=== PATIENT | female | born 1970 | race Caucasian/White ===

== ENCOUNTER → 2020-01-10 | Outpatient (CLI) | payer OTHER ==
--- NOTE | 2020-01-10 09:07 | MR ---
EXAMINATION TYPE: MR knee LT wo con DATE OF EXAM: 01/10/2020 COMPARISON: Plain film dated 01/04/2020 HISTORY: Pain on the inside and behind the Left Knee. Fell down stairs. TECHNIQUE: Multiplanar, multisequence imaging of the left knee is performed without IV contrast. FINDINGS: MEDIAL MENISCUS: Posterior horn medial meniscus shows some diffuse increased signal, there is a thick ened appearance, the root anchor appears at least somewhat discontinuous on the coronal image #21, 22 LATERAL MENISCUS: Anterior and posterior horns are intact without tear. CRUCIATE LIGAMENTS: The anterior and posterior cruciate ligaments are intact and unremarkable. COLLATERAL LIGAMENTS: The medial collateral ligament and lateral collateral ligament complex are inta ct and unremarkable. EXTENSOR MECHANISM: Visualized quadriceps and patellar tendons are intact. EFFUSION: Minimal suprapatellar joint effusion POPLITEAL CYST: Small semimembranosus gastric present TRICOMPARTMENT SPACES: Maintained CARTILAGE: A 2 to grade III chondromalacia present in, posterior patella BONE MARROW SIGNAL: No focal abnormal marrow signal is appreciated. OTHER: There is some subcutaneous edema change present anteriorly about the knee. IMPRESSION: Abnormal intrinsic signal within the posterior horn of the medial meniscus, the root anchor of the me dial meniscus shows what is likely at least a partial tear
== END ==
LOC: RADMRIMAIN 07:02
PROVIDERS: ATTEND Orthopaedic Surgery
DX: M23.322 Other meniscus derangements, posterior horn of medial meniscus, left knee (principal)

== ENCOUNTER → 2020-01-27 | Outpatient (CLI) | payer OTHER ==
[2020-01-27 11:01] LABS: Basophils # (A) 0.2 k/uL (0-0.2); Basophils % (A) 1 %; Eosinophils # (A) 0.3 k/uL (0-0.7); Eosinophils % (A) 2 %; HCT 42.9 % (34.0-46.0); Lymphocytes # (A) 3.7 k/uL (1.0-4.8); Lymphocytes % (A) 29 %; MCH 29.6 pg (25.0-35.0); MCHC 32.5 g/dL (31.0-37.0); MCV 90.9 fL (80.0-100.0); Mean Platelet Volume 7.5; Monocytes # (A) 0.7 k/uL (0-1.0); Monocytes % (A) 5 %; Neutrophils # (A) 7.9 k/uL (1.3-7.7); Neutrophils % (A) 61 %; Platelet Count 302 k/uL (150-450); RBC 4.72 m/uL (3.80-5.40); RDW 12.9 % (11.5-15.5)
[2020-01-27 11:09] LABS: Potassium 4.1 mmol/L (3.5-5.1)
== END | disposition home or self-care (01) ==
LOC: LABWHC1 09:48
PROVIDERS: ATTEND Orthopaedic Surgery
DX: Z01.818 Encounter for other preprocedural examination (principal); M23.92 Unspecified internal derangement of left knee
CPT/HCPCS: 36415; 80051; 85025; 93005

== ENCOUNTER → 2020-02-03 | Day surgery (SDC) | payer OTHER ==
[2020-01-31 10:14] VITALS: BMI 39.4
--- NOTE | 2020-02-02 21:53 | HP ---
HISTORY AND PHYSICAL CHIEF COMPLAINT: Left knee pain. 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 She notes she fell down the stairs in her basement. She has had pain and swelling ever since along with giving way. She did try medications in addition to an injection, with partial temporary relief. Currently she is off work because of this. She has been taking Motrin and Tylenol as well. PAST MEDICAL HISTORY: Past medical history is significant for hypercholesterolemia and depression. CURRENT MEDICATIONS: Zocor and Prozac. ALLERGIES: SHE DENIES DRUG ALLERGIES. FAMILY HISTORY: Significant for heart disease. SOCIAL HISTORY: Significant for 1-1/2 pack per day tobacco use. REVIEW OF SYSTEMS: Sixteen-point review of systems is otherwise reviewed and is noncontributory. PHYSICAL EXAMINATION: On examination, the patient is approximately 5 feet 4 inches, 230 pounds of endomorphic habitus. HEENT exam is nonfocal. NECK: Supple. She has painless passive motion of her left hip. Straight leg raise is negative. Active motion of the left knee minus 12 to 115 degrees of flexion. She has mild effusion. She is tender about the medial joint line. Collaterals are stable, Babatunde is negative, Isa's elicits medial pain. Her distal neurovascular exam otherwise appears intact in the left lower extremity. MRI report of left knee from 01/10/2020 shows a posterior medial meniscal tear involving the root. IMPRESSION: Internal derangement of the left knee with symptomatic medial meniscal tear. RECOMMENDATIONS: I spoke to the patient at length regarding her condition along with treatment options. At this point she is having persistent symptoms and significant pain and mechanical symptoms despite conservative measures. After a thorough discussion, she opted to proceed with surgery. We will plan to proceed with arthroscopic evaluation with probable partial medial meniscectomy. We will likely perform this as an outpatient procedure. Risks and benefits were discussed at length in layman's terms. MMODL / IJN: [id number] /
[~2020-02-03] MED LIST: ALBUTEROL INHALER 60 PUFF/8 GM INHALER (MHU) INHALATION ONE; ALBUTEROL NEBULIZED 2.5 MG/3 ML INHALATION ONE; DEXAMETHASONE SOD PHOSPHATE 10 MG/ML 1 ML VIAL IV ONE; HYDROcodone/APAP 5-325MG 1 EACH TAB ONE; HYDROcodone/APAP 5-325MG 1 EACH TAB PO ONE; KETOROLAC 30 MG/ML 1 ML VIAL ONE; LACTATED RINGERS 1,000 ML IV SCH; LIDOCAINE 1% (10MG/ML) FOR IV START INTRADERMA PRN; LIDOCAINE 1% INJ 10MG/ML (20 ML MDV) ONE; MIDAZOLAM 2 MG/2 ML VIAL IV PRN; MIDAZOLAM 2 MG/2 ML VIAL ONE; ONDANSETRON 4 MG/2 ML VIAL IVP ONE; ONDANSETRON 4 MG/2 ML VIAL ONE; PROPOFOL 10 MG/ML 20 ML VIAL IV ONE; SUCCINYLCHOLINE CHLORIDE 100 MG/5 ML SYR IV ONE; diphenhydrAMINE 50 MG/ML 1 ML VIAL IVP ONE; fentaNYL (PF) 50 MCG/ML 2 ML AMP ONE
[2020-02-03 08:42] VITALS: TEMP 97.6
--- NOTE | 2020-02-03 08:45 | P.OP ---
Date of Procedure: 02/03/20 Preoperative Diagnosis: Left knee internal derangement Postoperative Diagnosis: Left knee posterior medial meniscal tear/grade 3 chondral injury distal medial femoral condyle Procedure(s) Performed: Left knee arthroscopic partial medial meniscectomy/medial femoral chondrectomy/ Anesthesia: SEKOU Surgeon: Todd Ponce Estimated Blood Loss (ml): 10 Pathology: none sent Condition: stable Disposition: PACU Indications for Procedure: The patient's a 49-year-old female who presents with progressive left knee pain and mechanical symptoms after a previous injury. A discussion the risks and benefits of continued conservative measures versus operative intervention was made with patient. Proceed with surgery. Operative risks to include infection, neurovascular injury, development of blood clots, possible incomplete resolution of symptoms, possible worsening symptoms and need for subsequent procedures was discussed. Informed consent was obtained. Operative Findings: As below Description of Procedure: The patient was brought to the operating room, and after induction of general anesthesia examined the left knee. Collaterals were stable, Babatunde was negative, and posterior drawer was negative. The left lower extremity was prepped and draped in a normal fashion. A superior lateral portal was made through a 3 mm skin incision superior and lateral to the patella. This was used for outflow. A lateral portal was made through a 5 mm vertical skin incision lateral to the patella tendon above the joint line. Diagnostic arthroscopy was performed. On inspection of the medial compartment, and oblique tear involving the posterior most aspect of the medial meniscus in the white-red junction was noted. This was not amenable to repair. This was debrided back to stable base with straight baskets and a motorized shaver. A grade 3 chondral injury was noted involving the distal central portion medial femoral condyle. As a loose chondral flap measuring approximately 4 x 5 mm. This debrided back to stable base motorized shaver. Microfracture is performed with a power pick breeching the subchondral surface down to the bone marrow elements. On inspection of the notch, the anterior cruciate ligament appeared to be intact. On inspection of the lateral compartment, no significant meniscal or cartilage pathology was noted. On inspection of the patellofemoral articulation, there was chondral fibrillation however no loose chondral fragments. The gutters were clear debris. The knee was then thoroughly irrigated. The portals were closed with Steri-Strips. A sterile dressing was applied in addition to a compression stocking. The patient was awoken from general anesthesia and transferred to recovery room in good condition. Blood loss was estimated at 10 mL. No complications were incurred.
[2020-02-03] MEDS: HYDROmorphone 0.5 MG/0.5 ML SYRINGE IVP PRN ×4 (08:51→09:05)
[2020-02-03 09:39] VITALS: RESP 17
[2020-02-03 09:54] VITALS: BP 116/54; PULSE 69
== END | disposition home or self-care (01) ==
LOC: OR 06:39
PROVIDERS: ATTEND Orthopaedic Surgery
DX: S83.242A Other tear of medial meniscus, current injury, left knee, initial encounter (principal); S89.82XA Other specified injuries of left lower leg, initial encounter; E78.00 Pure hypercholesterolemia, unspecified; F32.9 Major depressive disorder, single episode, unspecified; F17.210 Nicotine dependence, cigarettes, uncomplicated; E78.5 Hyperlipidemia, unspecified; N28.89 Other specified disorders of kidney and ureter; M19.90 Unspecified osteoarthritis, unspecified site; Z79.899 Other long term (current) drug therapy; Z90.49 Acquired absence of other specified parts of digestive tract; Z96.0 Presence of urogenital implants; Z82.49 Family history of ischemic heart disease and other diseases of the circulatory system; W10.9XXA Fall (on) (from) unspecified stairs and steps, initial encounter; Y92.018 Other place in single-family (private) house as the place of occurrence of the external cause
CPT/HCPCS: 81025; 29881; 29879; J2250; J1200; J1100; J0690; J2405; J2001; J3010; J1885; J0330; J2704; J1170

== ENCOUNTER → 2020-07-05 | Outpatient (CLI) | payer OTHER ==
--- NOTE | 2020-07-05 13:27 | MM ---
Reason for exam: screening (asymptomatic). Baseline mammogram. History: Patient is nulliparous. Physical Findings: Nurse did not find any significant physical abnormalities on exam. MG Screening Mammo w CAD Bilateral CC and MLO view(s) were taken. The breast tissue is almost entirely fat. There is no discrete abnormality. These results were verbally communicated with the patient and result sheet given to the patient on 07/05/20. ASSESSMENT: Negative, BI-RAD 1 RECOMMENDATION: Routine screening mammogram of both breasts in 1 year.
== END | disposition home or self-care (01) ==
LOC: RADMAMWWP 12:35
PROVIDERS: ATTEND Physician Assistant
DX: Z12.31 Encounter for screening mammogram for malignant neoplasm of breast (principal)
CPT/HCPCS: 77067

== ENCOUNTER → 2023-05-13 | Outpatient (CLI) | payer OTHER ==
--- NOTE | 2023-05-14 11:01 | MM ---
Reason for Exam: Screening (asymptomatic). Last mammogram was performed 2 year(s) and 10 month(s) ago. Patient History: Menarche at age 11. Patient has no children. Postmenopausal. Risk Values: Juana 5 year model risk: 1.2%. NCI Lifetime model risk: 9.4%. Prior Study Comparison: 07/05/2020 Bilateral Screening Mammogram, [facility]. Tissue Density: The breast tissue is almost entirely fat. Findings: Analyzed By CAD. There is no suspicious group of microcalcifications or new suspicious mass in either breast. Overall Assessment: Negative, BI-RAD 1 Management: Screening Mammogram of both breasts in 1 year. . Patient should continue monthly self-breast exams. A clinical breast exam by your physician is recommended on an annual basis. This exam should not preclude additional follow-up of suspicious palpable abnormalities. Note on Juana scores and lifetime risk: 1. A Juana score greater than 3% is considered moderate risk. If this is the case, consider specialist referral to assess eligibility for a risk reducing agent. 2. If overall lifetime risk for the development of breast cancer is 20% or higher, the patient may qualify for future screening with alternating mammogram and breast MRI. Electronically signed and approved by: Camilo Hernández M.D. Radiologis
== END | disposition home or self-care (01) ==
LOC: RADMAMWWP 09:55
PROVIDERS: ATTEND Family Medicine
DX: Z12.31 Encounter for screening mammogram for malignant neoplasm of breast (principal); Z78.0 Asymptomatic menopausal state
CPT/HCPCS: 77067

== ENCOUNTER 2023-07-02 13:49 | Emergency (ER) | payer BC, OTHER ==
[2023-07-02 15:09] LABS: Basophils # (A) 0.1 k/uL (0-0.2); Basophils % (A) 1 %; Eosinophils # (A) 0.2 k/uL (0-0.7); Eosinophils % (A) 2 %; HCT 38.2 % (34.0-46.0); HGB 12.7 gm/dL (11.4-16.0); Lymphocytes # (A) 3.1 k/uL (1.0-4.8); Lymphocytes % (A) 27 %; MCH 29.4 pg (25.0-35.0); MCHC 33.2 g/dL (31.0-37.0); MCV 88.6 fL (80.0-100.0); Mean Platelet Volume 7.5; Monocytes # (A) 0.6 k/uL (0-1.0); Monocytes % (A) 6 %; Neutrophils # (A) 7.4 k/uL (1.3-7.7); Neutrophils % (A) 64 %; Platelet Count 311 k/uL (150-450); RBC 4.31 m/uL (3.80-5.40); RDW 12.7 % (11.5-15.5); WBC 11.7 k/uL (3.8-10.6)
[2023-07-02 15:19] LABS: INR 0.9 (<1.2); Prothrombin Time 10.4 sec (10.0-12.5)
--- NOTE | 2023-07-02 15:20 | XR ---
EXAMINATION TYPE: XR chest 2V DATE OF EXAM: 07/02/2023 COMPARISON: None INDICATION: Difficulty breathing TECHNIQUE: Frontal and lateral views of the chest are obtained. FINDINGS: The heart size is normal. The pulmonary vasculature is normal. The lungs are clear. IMPRESSION: 1. No acute pulmonary process.
[2023-07-02 15:33] LABS: ALT 37 U/L (4-34); AST 33 U/L (14-36); African American GFR (CKD) >90 (>60 ml/min/1.73 sqM); Albumin 4.6 g/dL (3.5-5.0); Alkaline Phosphatase 97 U/L (38-126); Anion Gap 12 mmol/L; Blood Urea Nitrogen 16 mg/dL (7-17); Calcium 9.6 mg/dL (8.4-10.2); Carbon Dioxide 24 mmol/L (22-30); Chloride 102 mmol/L (98-107); Glucose 110 mg/dL (74-99); Non-African American GFR(CKD) >90 (>60 ml/min/1.73 sqM); Potassium 4.2 mmol/L (3.5-5.1); Sodium 138 mmol/L (137-145); Total Bilirubin 0.6 mg/dL (0.2-1.3); Total Protein 7.8 g/dL (6.3-8.2)
[2023-07-02 15:42] LABS: NT-Pro-B-Type Natriuretic Pept 47 pg/mL
--- NOTE | 2023-07-02 17:05 | ED ---
General Adult HPI - General Chief complaint: Shortness of Breath Stated complaint: SOB Time Seen by Provider: 07/02/23 16:20 Source: patient, RN notes reviewed Mode of arrival: ambulatory Limitations: no limitations - History of Present Illness Initial comments: 52-year-old female presents to the emergency department for evaluation of shortness of breath worse with exertion. Patient states that she was evaluated at her primary care provider's office today and was told that it looked like she may have fluid on her lungs. This prompted her PCP to have her evaluated in the emergency department today. Patient does report bilateral lower extremity s welling occasionally. She reports that it is minimal today. She denies chest pain. - Related Data Home Medications Medication Instructions Recorded Confirmed FLUoxetine HCL [PROzac] 20 mg PO DAILY 01/31/20 07/02/23 Simvastatin [Zocor] 40 mg PO HS 01/31/20 07/02/23 Ascorbic Acid [Vitamin C] 2,000 mg PO DAILY 07/02/23 07/02/23 Biotin [Jtzn-Kexu-Hfaam] 10,000 mcg PO DAILY 07/02/23 07/02/23 Celecoxib [CeleBREX] 200 mg PO DAILY 07/02/23 07/02/23 Celecoxib [CeleBREX] 200 mg PO DAILY PRN 07/02/23 07/02/23 Cholecalciferol [Vitamin D3 (25 50 mcg PO DAILY 07/02/23 07/02/23 Mcg = 1000 Iu)] Garlic 1,000 mg PO DAILY 07/02/23 07/02/23 Ramya 500 mg PO DAILY 07/02/23 07/02/23 Magnesium 400 mg PO DAILY 07/02/23 07/02/23 Vit C/E/Zn/Coppr/Lutein/Zeaxan 1 cap PO DAILY 07/02/23 07/02/23 [Preservision Areds 2 Softgel] metFORMIN HCL [Glucophage] 500 mg PO BID 07/02/23 07/02/23 Previous Rx's Medication Instructions Recorded Furosemide [Lasix] 20 mg PO DAILY #14 tab 07/02/23 Allergies Allergy/AdvReac Type Severity Reaction Status Date / Time No Known Allergies Allergy Verified 07/02/23 16:56 Review of Systems ROS Statement: Those systems with pertinent positive or pertinent negative responses have been documented in the HPI. ROS Other: All systems not noted in ROS Statement are negative. Past Medical History Past Medical History: Diabetes Mellitus Additional Past Medical History / Comment(s): depression, History of Any Multi-Drug Resistant Organisms: None Reported Past Surgical History: Cholecystectomy, Orthopedic Surgery Past Psychological History: Depression Smoking Status: Former smoker Past Alcohol Use History: Occasional Past Drug Use History: None Reported General Exam Limitations: no limitations General appearance: alert, in no apparent distress Head exam: Present: atraumatic, normocephalic, normal inspection Eye exam: Present: normal appearance, PERRL, EOMI. Absent: scleral icterus, conjunctival injection, periorbital swelling ENT exam: Present: normal exam, mucous membranes moist Neck exam: Present: normal inspection. Absent: tenderness, meningismus, lymphadenopathy Respiratory exam: Present: normal lung sounds bilaterally. Absent: respiratory distress, wheezes, rales, rhonchi, stridor Cardiovascular Exam: Present: regular rate, normal rhythm, normal heart sounds. Absent: systolic murmur, diastolic murmur, rubs, gallop, clicks Course Vital Signs 07/02/23 07/02/23 14:09 17:44 Temperature 97.7 F 98.2 F Pulse Rate 57 L 81 Respiratory 18 22 Rate Blood Pressure 143/78 129/78 O2 Sat by Pulse 96 96 Oximetry Medical Decision Making - Medical Decision Making Was pt. sent in by a medical professional or institution ([facility], [employer], urgent care, hospital, or [place] health care facility...) When possible be specific @ -Sent in by PCP Did you speak to anyone other than the patient for history (EMS, parent, family, police, friend...)? What history was obtained from this source @ -No Did you review nursing and triage notes (agree or disagree)? Why? @ -I reviewed and agree with nursing and triage notes Were old charts reviewed (outside hosp., previous admission, EMS record, old EKG, old radiological studies, urgent care reports/EKG's, [place] health care facility records)? Report findings @ -No old charts were reviewed Differential Diagnosis (chest pain, altered mental status, abdominal pain women, abdominal pain men, vaginal bleeding, weakness, fever, dyspnea, syncope, headache, dizziness, GI bleed, back pain, seizure, CVA, palpatations, mental health, musculoskeletal)? @ -Differential Dyspnea: Coronary syndrome, arrhythmia, tamponade, asthma, COPD, pulmonary embolism, pneumonia, pneumothorax, pulmonary effusion, anaphylaxis, diabetic ketoacidosis, flailed chest, pulmonary contusion, diaphragmatic rupture, anemia, neuromuscular, this is not meant to be an all-inclusive list. e EKG interpreted by me (3pts min.). @ -EKG at 1439 shows sinus bradycardia rate 56, ME 160, QRS 89, QTQTc 091024 X-rays interpreted by me (1pt min.). @ -Chest x-ray shows no acute process CT interpreted by me (1pt min.). @ -None done U/S interpreted by me (1pt. min.). @ -None done What testing was considered but not performed or refused? (CT, X-rays, U/S, labs)? Why? @ -None What meds were considered but not given or refused? Why? @ -None Did you discuss the management of the patient with other professionals (professionals i.e. , PA, [employer], lab, RT, psych nurse, licensed social worker, flow trader, teacher, chief school finance officer, case management manager)? Give summary @ -No Was smoking cessation discussed for >3mins.? @ -No Was critical care preformed (if so, how long)? @ -No Were there social determinants of health that impacted care today? How? (Homelessness, low income, unemployed, alcoholism, drug addiction, transportation, low edu. Level, literacy, decrease access to med. care, nursing home, rehab)? @ -No Was there de-escalation of care discussed even if they declined (Discuss DNR or withdrawal of care, Hospice)? DNR status @ -No What co-morbidities impacted this encounter? (DM, HTN, Smoking, COPD, CAD, Cancer, CVA, ARF, Chemo, Hep., AIDS, mental health diagnosis, sleep apnea, morbid obesity)? @ -None Was patient admitted / discharged? Hospital course, mention meds given and route, prescriptions, significant lab abnormalities, going to OR and other pertinent info. @ -Discharged. Patient presented to the emergency department for evaluation of shortness of breath and bilateral lower extremity edema. On examination today, patient has minimal bilateral lower extremity edema. Chest x-ray obtained shows no acute process.Laboratory studies obtained including troponin which is negative and BMP which is 47. Discussed the findings with the patient. Patient agreeable with discharge home. Patient is not visibly short of breath. Patient stable at time of discharge. Case discussed with Dr. Hartley. Undiagnosed new problem with uncertain prognosis? @ -No Drug Therapy requiring intensive monitoring for toxicity (Heparin, Nitro, Insulin, Cardizem)? @ -No Were any procedures done? @ -No Diagnosis/symptom? @ -shortness of breath, bilateral lower extremity edema Acute, or Chronic, or Acute on Chronic? @ -acute Uncomplicated (without systemic symptoms) or Complicated (systemic symptoms)? @ -uncomplicated Side effects of treatment? @ -No Exacerbation, Progression, or Severe Exacerbation? @ -No Poses a threat to life or bodily function? How? (Chest pain, USA, NC, pneumonia, PE, COPD, DKA, ARF, appy, cholecystitis, CVA, Diverticulitis, Homicidal, Suicidal, threat to staff... and all critical care pts) @ -No - Lab Data Result diagrams: 07/02/23 14:46 07/02/23 14:46 Lab Results 07/02/23 07/02/23 07/02/23 Range/Units 14:46 14:46 14:46 WBC 11.7 H (3.8-10.6) k/uL RBC 4.31 (3.80-5.40) m/uL Hgb 12.7 (11.4-16.0) gm/dL Hct 38.2 (34.0-46.0) % MCV 88.6 (80.0-100.0) fL MCH 29.4 (25.0-35.0) pg MCHC 33.2 (31.0-37.0) g/dL RDW 12.7 (11.5-15.5) % Plt Count 311 (150-450) k/uL MPV 7.5 Neutrophils % 64 % Lymphocytes % 27 % Monocytes % 6 % Eosinophils % 2 % Basophils % 1 % Neutrophils # 7.4 (1.3-7.7) k/uL Lymphocytes # 3.1 (1.0-4.8) k/uL Monocytes # 0.6 (0-1.0) k/uL Eosinophils # 0.2 (0-0.7) k/uL Basophils # 0.1 (0-0.2) k/uL PT 10.4 (10.0-12.5) sec INR 0.9 (<1.2) APTT 26.0 (22.0-30.0) sec Sodium 138 (137-145) mmol/L Potassium 4.2 (3.5-5.1) mmol/L Chloride 102 (98-107) mmol/L Carbon Dioxide 24 (22-30) mmol/L Anion Gap 12 mmol/L BUN 16 (7-17) mg/dL Creatinine 0.49 L (0.52-1.04) mg/dL Est GFR (CKD-EPI)AfAm >90 (>60 ml/min/1.73 sqM) Est GFR (CKD-EPI)NonAf >90 (>60 ml/min/1.73 sqM) Glucose 110 H (74-99) mg/dL Calcium 9.6 (8.4-10.2) mg/dL Total Bilirubin 0.6 (0.2-1.3) mg/dL AST 33 (14-36) U/L ALT 37 H (4-34) U/L Alkaline Phosphatase 97 (38-126) U/L Troponin I (0.000-0.034) ng/mL NT-Pro-B Natriuret Pep 47 pg/mL Total Protein 7.8 (6.3-8.2) g/dL Albumin 4.6 (3.5-5.0) g/dL 07/02/23 Range/Units 14:46 WBC (3.8-10.6) k/uL RBC (3.80-5.40) m/uL Hgb (11.4-16.0) gm/dL Hct (34.0-46.0) % MCV (80.0-100.0) fL MCH (25.0-35.0) pg MCHC (31.0-37.0) g/dL RDW (11.5-15.5) % Plt Count (150-450) k/uL MPV Neutrophils % % Lymphocytes % % Monocytes % % Eosinophils % % Basophils % % Neutrophils # (1.3-7.7) k/uL Lymphocytes # (1.0-4.8) k/uL Monocytes # (0-1.0) k/uL Eosinophils # (0-0.7) k/uL Basophils # (0-0.2) k/uL PT (10.0-12.5) sec INR (<1.2) APTT (22.0-30.0) sec Sodium (137-145) mmol/L Potassium (3.5-5.1) mmol/L Chloride (98-107) mmol/L Carbon Dioxide (22-30) mmol/L Anion Gap mmol/L BUN (7-17) mg/dL Creatinine (0.52-1.04) mg/dL Est GFR (CKD-EPI)AfAm (>60 ml/min/1.73 sqM) Est GFR (CKD-EPI)NonAf (>60 ml/min/1.73 sqM) Glucose (74-99) mg/dL Calcium (8.4-10.2) mg/dL Total Bilirubin (0.2-1.3) mg/dL AST (14-36) U/L ALT (4-34) U/L Alkaline Phosphatase (38-126) U/L Troponin I <0.012 (0.000-0.034) ng/mL NT-Pro-B Natriuret Pep pg/mL Total Protein (6.3-8.2) g/dL Albumin (3.5-5.0) g/dL Disposition Clinical Impression: Lower extremity edema, Shortness of breath Disposition: HOME SELF-CARE Condition: Stable Instructions (If sedation given, give patient instructions): Shortness of Breath (ED) Additional Instructions: Please follow up with Dr. Hameed's office. Return to the emergency department for new or worsening symptoms. Prescriptions: Furosemide [Lasix] 20 mg PO DAILY #14 tab Is patient prescribed a controlled substance at d/c from ED?: No Referrals: Sha Hameed MD [Primary Care Provider] - 1-2 days
[2023-07-02 17:56] VITALS: BP 129/78; PULSE 81; RESP 22; TEMP 98.2
== END 2023-07-02 17:44 | disposition home or self-care (01) ==
LOC: EC 13:49
DX: R06.02 Shortness of breath (principal); R60.0 Localized edema; E11.9 Type 2 diabetes mellitus without complications; F32.A Depression, unspecified; Z79.1 Long term (current) use of non-steroidal anti-inflammatories (NSAID); Z79.84 Long term (current) use of oral hypoglycemic drugs; Z79.899 Other long term (current) drug therapy; Z87.891 Personal history of nicotine dependence; Z90.49 Acquired absence of other specified parts of digestive tract
CPT/HCPCS: 36415; 71046; 80053; 83880; 84484; 85025; 85610; 85730; 93005; 99285

== ENCOUNTER 2023-08-13 10:58 | Emergency (ER) | payer BC ==
[2023-08-13 11:55] VITALS: BP 143/75; PULSE 64; RESP 18; TEMP 98.2
--- NOTE | 2023-08-13 11:56 | ED ---
Extremity Problem HPI - General Stated complaint: PAIN IN R KNEE Source: patient Mode of arrival: ambulatory Limitations: no limitations - History of Present Illness Initial comments: Patient is a 52-year-old female who presents emergency room with complaints of right knee pain. Patient said she has had right lateral knee pain for a few weeks however when she went to get up out of her chair today she felt a pop and had extreme pain. She denies falling to the ground. Denies any head trauma. Patient has had a left meniscus tear and she states it feels similar. She is unable to bear weight without any pain since hearing a pop. She does see an water rights specialist regularly for ongoing knee pain. She was unable to get into the or though today but can get in next week. She is not on any chronic pain medications but does take medication for rheumatoid arthritis. - Related Data Home Medications Medication Instructions Recorded Confirmed FLUoxetine HCL [PROzac] 20 mg PO DAILY 01/31/20 07/02/23 Simvastatin [Zocor] 40 mg PO HS 01/31/20 07/02/23 Ascorbic Acid [Vitamin C] 2,000 mg PO DAILY 07/02/23 07/02/23 Biotin [Nlaz-Cfgm-Ushix] 10,000 mcg PO DAILY 07/02/23 07/02/23 Celecoxib [CeleBREX] 200 mg PO DAILY 07/02/23 07/02/23 Celecoxib [CeleBREX] 200 mg PO DAILY PRN 07/02/23 07/02/23 Cholecalciferol [Vitamin D3 (25 50 mcg PO DAILY 07/02/23 07/02/23 Mcg = 1000 Iu)] Garlic 1,000 mg PO DAILY 07/02/23 07/02/23 Ramya 500 mg PO DAILY 07/02/23 07/02/23 Magnesium 400 mg PO DAILY 07/02/23 07/02/23 Vit C/E/Zn/Coppr/Lutein/Zeaxan 1 cap PO DAILY 07/02/23 07/02/23 [Preservision Areds 2 Softgel] metFORMIN HCL [Glucophage] 500 mg PO BID 07/02/23 07/02/23 Previous Rx's Medication Instructions Recorded Furosemide [Lasix] 20 mg PO DAILY #14 tab 07/02/23 Lidocaine 5% Patch [Lidoderm] 1 each TP DAILY #14 patch 08/13/23 oxyCODONE HCL/ACETAMINOPHEN 1 tab PO Q6HR PRN 3 Days #12 tab 08/13/23 [Percocet 5-325 mg] Allergies Allergy/AdvReac Type Severity Reaction Status Date / Time No Known Allergies Allergy Verified 08/13/23 11:28 Review of Systems ROS Statement: Those systems with pertinent positive or pertinent negative responses have been documented in the HPI. ROS Other: All systems not noted in ROS Statement are negative. Past Medical History Past Medical History: Diabetes Mellitus Additional Past Medical History / Comment(s): depression, History of Any Multi-Drug Resistant Organisms: None Reported Past Surgical History: Cholecystectomy, Orthopedic Surgery Past Psychological History: Depression Smoking Status: Former smoker Past Alcohol Use History: Occasional Past Drug Use History: None Reported General Exam Limitations: no limitations General appearance: alert, in no apparent distress Eye exam: Present: normal appearance Neck exam: Present: full ROM Cardiovascular Exam: Present: regular rate Extremities exam: Present: tenderness (Tenderness over the right LCL. No swelling), other (Pain to the right lateral knee without any significant swelling. No erythema or warmth. No laxity of the ligaments. No popping or clicking elicited.). Absent: full ROM, joint swelling Back exam: Present: full ROM Neurological exam: Present: alert, oriented X3, CN II-XII intact Psychiatric exam: Present: normal affect Skin exam: Present: warm, dry Course Vital Signs 08/13/23 08/13/23 11:27 14:12 Temperature 98.2 F Pulse Rate 64 Respiratory 18 18 Rate Blood Pressure 143/75 O2 Sat by Pulse 95 Oximetry - Reevaluation(s) Reevaluation #1: 08/13/23 1345 Patient can minutes in the emergency room. Had a knee immobilizer applied and she has crutches at home she can use for evaluation. I discussed imaging results which are negative for any DVT, fracture, dislocation, effusion or other acute changes. Discussed treatment plan including elevation and follow up with her water rights specialist next week. She understands she is not to work or drive while taking pain medication. Medical Decision Making - Medical Decision Making Was pt. sent in by a medical professional or institution (, PA, FLAME HARDENING MACHINE OPERATOR, urgent care, hospital, or penitentiary...) When possible be specific @ -[No] Did you speak to anyone other than the patient for history (EMS, parent, family, police, friend...)? What history was obtained from this source @ - at bedside Did you review nursing and triage notes (agree or disagree)? Why? @ -[I reviewed and agree with nursing and triage notes] Were old charts reviewed (outside hosp., previous admission, EMS record, old EKG, old radiological studies, urgent care reports/EKG's, penitentiary records)? Report findings @ -Old charts were reviewed, and external medication records were reviewed. Differential Diagnosis (chest pain, altered mental status, abdominal pain women, abdominal pain men, vaginal bleeding, weakness, fever, dyspnea, syncope, headache, dizziness, GI bleed, back pain, seizure, CVA, palpatations, mental health, musculoskeletal)? @ -Meniscus tear of the right knee, right knee sprain, osteoarthritis of the right knee, right knee pain EKG interpreted by me (3pts min.). @ -[As above] X-rays interpreted by me (1pt min.). @ -X-rays negative for any dislocation, fracture or acute changes. CT interpreted by me (1pt min.). @ -[None done] U/S interpreted by me (1pt. min.). @ -Ultrasound is negative for any DVT or other acute changes. What testing was considered but not performed or refused? (CT, X-rays, U/S, labs)? Why? @ -MRI. Unable to complete an MRI in the emergency room as this is an outpatient study. She will follow up with water rights specialist as an outpatient for possible further imaging. What meds were considered but not given or refused? Why? @ -[None] Did you discuss the management of the patient with other professionals (pr ofessionals i.e. , PA, FLAME HARDENING MACHINE OPERATOR, lab, RT, psych nurse, secondary social studies teacher, winding department supervisor, teacher, officer captain, manager agricultural)? Give summary @ -[No] Was smoking cessation discussed for >3mins.? @ -[No] Was critical care preformed (if so, how long)? @ -[No] Were there social determinants of health that impacted care today? How? (Homelessness, low income, unemployed, alcoholism, drug addiction, transportation, low edu. Level, literacy, decrease access to med. care, longterm, rehab)? @ -[No] Was there de-escalation of care discussed even if they declined (Discuss DNR or withdrawal of care, Hospice)? DNR status @ -[No] What co-morbidities impacted this encounter? (DM, HTN, Smoking, COPD, CAD, Cancer, CVA, ARF, Chemo, Hep., AIDS, mental health diagnosis, sleep apnea, morbid obesity)? @ -[None] Was patient admitted / discharged? Hospital course, mention meds given and route, prescriptions, significant lab abnormalities, going to OR and other pertinent info. @ -[Patient is stable she is able to follow-up as an outpatient with water rights specialist. She will be given medication for pain as needed she understands she is not to drive or work while taking the medication Undiagnosed new problem with uncertain prognosis? @ -[No] Drug Therapy requiring intensive monitoring for toxicity (Heparin, Nitro, In sulin, Cardizem)? @ -[No] Were any procedures done? @ -[No] Diagnosis/symptom? @ -Right knee pain, right LCL sprain, possible meniscal injury of the right knee Acute, or Chronic, or Acute on Chronic? @ -Acute Uncomplicated (without systemic symptoms) or Complicated (systemic symptoms)? @ -[default] Side effects of treatment? @ -[No] Exacerbation, Progression, or Severe Exacerbation? @ -[No] Poses a threat to life or bodily function? How? (Chest pain, USA, OR, pneumonia, PE, COPD, DKA, ARF, appy, cholecystitis, CVA, Diverticulitis, Homicidal, Suicidal, threat to staff... and all critical care pts) @ -[No] Disposition Clinical Impression: Knee pain, MCL sprain of right knee Disposition: HOME SELF-CARE Condition: Fair Instructions (If sedation given, give patient instructions): Knee Sprain (ED), Swollen Knee Joint (ED), Knee Pain (ED) Prescriptions: Lidocaine 5% Patch [Lidoderm] 1 each TP DAILY #14 patch oxyCODONE HCL/ACETAMINOPHEN [Percocet 5-325 mg] 1 tab PO Q6HR PRN 3 Days #12 tab PRN Reason: Pain Is patient prescribed a controlled substance at d/c from ED?: No Referrals: Sha Hameed MD [Primary Care Provider] - 1-2 days Dre Scruggs MD [REFERRING] - 1-2 days Time of Disposition: 13:59
[2023-08-13] MEDS: oxyCODONE-APAP 10-325MG 1 EACH TAB PO STA (12:10)
[2023-08-13] MEDS: KETOROLAC 15 MG/ML 1 ML VIAL IM STA (12:11)
--- NOTE | 2023-08-13 12:19 | XR ---
EXAMINATION TYPE: XR knee complete RT DATE OF EXAM: 08/13/2023 COMPARISON: None HISTORY: 52-year-old female with pain TECHNIQUE: 3 views FINDINGS: Mild degenerative spurring patellofemoral compartment. Extensor mechanism is intact. No sig nificant joint effusion. No acute fracture, subluxation, dislocation seen. IMPRESSION: No acute osseous abnormality seen. Mild early degenerative spurring in the patellofemoral compartment .
--- NOTE | 2023-08-13 13:15 | US ---
EXAMINATION TYPE: US venous doppler duplex LE RT DATE OF EXAM: 08/13/2023 11:55 AM COMPARISON: NONE CLINICAL INDICATION: Female, 52 years old with history of pain; Right leg pain SIDE PERFORMED: Right TECHNIQUE: The lower extremity deep venous system is examined utilizing real time linear array sonog mode with graded compression, doppler sonography and color-flow sonography. VESSELS IMAGED: Common Femoral Vein Deep Femoral Vein Greater Saphenous Vein * Femoral Vein Popliteal Vein Small Saphenous Vein * Proximal Calf Veins (* superficial vessels) Right Leg: Appears negative for DVT IMPRESSION: No evidence for DVT within the right lower extremity imaged from the groin to the upper calf.
== END 2023-08-13 14:13 | disposition home or self-care (01) ==
LOC: EC 10:58
DX: S83.91XA Sprain of unspecified site of right knee, initial encounter (principal); E11.9 Type 2 diabetes mellitus without complications; F32.A Depression, unspecified; Z87.891 Personal history of nicotine dependence; Z79.899 Other long term (current) drug therapy; X58.XXXA Exposure to other specified factors, initial encounter
CPT/HCPCS: 73562; 93971; 99284; 96372; L1830; J1885

== ENCOUNTER → 2023-08-31 | Outpatient (CLI) | payer BC ==
--- NOTE | 2023-09-03 14:02 | MR ---
EXAMINATION TYPE: MR knee RT wo con DATE OF EXAM: 08/31/2023 COMPARISON: Outside right knee x-ray August 21, 2023 HISTORY: Rt knee pain For 4 weeks after twisting injury. TECHNIQUE: Multiplanar, multisequence images of the knee is performed without IV contrast. FINDINGS: Slightly suboptimal due to artifact from motion. MEDIAL MENISCUS: Medial bulging medial meniscus on coronal images. Increased signal posterior horn do es not definitively extend to articular surface. LATERAL MENISCUS: Anterior and posterior horns are intact without tear. CRUCIATE LIGAMENTS: The anterior and posterior cruciate ligaments are intact. There is some undulatio n and increased signal in the anterior cruciate ligament. COLLATERAL LIGAMENTS: The medial collateral ligament and lateral collateral ligament complex are inta ct. Some increased signal in the lateral collateral ligament proper. Partial tearing of the medial co llateral ligament with surrounding fluid. EXTENSOR MECHANISM: Visualized quadriceps and patellar tendons are intact. EFFUSION: Small size suprapatellar joint effusion. POPLITEAL CYST: No popliteal/lugo cyst. TRICOMPARTMENT SPACES: Mild to moderate tricompartment joint space loss. No significant spurring. CARTILAGE: Chondromalacia patella with cartilaginous loss along the posterior patellar pole. Areas of full-thickness loss superiorly are seen. BONE MARROW SIGNAL: Heterogeneity consistent with red marrow reconversion. OTHER: No additional significant abnormality is appreciated. IMPRESSION: 1. Suboptimal study, at least intrasubstance tear posterior horn medial meniscus. 2. Suspect sprain injury to the medial collateral ligament. Suspect chronic sprain injury to the late ral collateral ligament proper. 3. Partial tearing of the anterior cruciate ligament. 4. Mild to moderate tricompartment degenerative changes most prominent patellofemoral compartment as detailed above. 5. Small-size suprapatellar joint effusion.
== END | disposition home or self-care (01) ==
LOC: RADMRIMAIN 12:40
PROVIDERS: ATTEND Orthopaedic Surgery
DX: M17.11 Unilateral primary osteoarthritis, right knee (principal); M23.611 Other spontaneous disruption of anterior cruciate ligament of right knee; M23.321 Other meniscus derangements, posterior horn of medial meniscus, right knee; M25.461 Effusion, right knee; X50.1XXA Overexertion from prolonged static or awkward postures, initial encounter

== ENCOUNTER → 2023-09-17 | Outpatient (CLI) | payer BC ==
[2023-09-18 02:51] LABS: Anion Gap 14.1 mmol/L (4.00-12.00); Carbon Dioxide 24.9 mmol/L (21.6-31.8); Potassium 4.4 mmol/L (3.5-5.5)
[2023-09-18 02:56] LABS: Basophils # (A) 0.13 X 10*3/uL (0.00-0.10); Eosinophils # (A) 0.23 X 10*3/uL (0.04-0.35); Eosinophils % (A) 1.7 %; HCT 42.5 % (37.2-46.3); HGB 13.4 g/dL (12.0-15.0); Lymphocytes # (A) 3.51 X 10*3/uL (0.90-5.00); Lymphocytes % (A) 26.3 %; MCH 27.9 pg (27.0-32.0); MCHC 31.5 g/dL (32.0-37.0); MCV 88.5 FL (80.0-97.0); Mean Platelet Volume 10.1 FL (9.5-12.2); Monocytes # (A) 1.08 X 10*3/uL (0.20-1.00); Monocytes % (A) 8.1 %; NRBC Per 100 WBC 0 X 10*3/uL (0.00-0.01); Neutrophils # (A) 8.32 X 10*3/uL (1.80-7.70); Neutrophils % (A) 62.4 %; Platelet Count 320 X 10*3/uL (140-440); RDW 13.5 % (11.5-14.5); WBC 13.33 X 10*3/uL (4.50-10.00)
== END | disposition home or self-care (01) ==
LOC: LABWHC1 13:49
PROVIDERS: ATTEND Orthopaedic Surgery
DX: Z01.812 Encounter for preprocedural laboratory examination (principal); M23.91 Unspecified internal derangement of right knee; R94.31 Abnormal electrocardiogram [ECG] [EKG]
CPT/HCPCS: 36415; 80051; 85025; 93005

== ENCOUNTER 2023-10-01 10:53 | Day surgery (SDC) | payer BC ==
--- NOTE | 2023-09-30 20:20 | HP ---
HISTORY AND PHYSICAL DATE OF SURGERY: 10/01/2023. HISTORY OF PRESENT ILLNESS: Itzel Najera is a 53-year-old patient seen with progressive right knee pain. We discussed options for treatment. She elected to proceed with right knee arthroscopy. Consent was obtained. PAST MEDICAL HISTORY: Hypercholesterolemia. PAST SURGICAL HISTORY: Noncontributory. DAILY MEDICATIONS: 1. Zocor. 2. Prozac. 3. Motrin. ALLERGIES: None. SOCIAL HISTORY: Smokes cigarettes. PHYSICAL EVALUATION OF THE RIGHT KNEE: Range of motion is 0 to 120 degrees. Mild to moderate effusion. Tenderness along the medial joint line. Positive medial Isa's. Ligaments stable. Hip rotation without pain. Distal neurovascular exam is intact. IMAGING STUDIES: Radiographs of the right knee revealed mild osteoarthritis, effusion. MRI of right knee revealed medial meniscal tear, partial anterior cruciate ligament tear, partial medial collateral ligament tear and effusion. IMPRESSION: Internal derangement of right knee with medial meniscal tear. PLAN: Right knee arthroscopy with partial medial meniscectomy and debridement. MMODL / IJN: [id number] /
[~2023-10-01 10:53] MED LIST changes: -ALBUTEROL INHALER 60 PUFF/8 GM INHALER (MHU) INHALATION ONE; -ALBUTEROL NEBULIZED 2.5 MG/3 ML INHALATION ONE; -DEXAMETHASONE SOD PHOSPHATE 10 MG/ML 1 ML VIAL IV ONE; -HYDROcodone/APAP 5-325MG 1 EACH TAB ONE; -HYDROcodone/APAP 5-325MG 1 EACH TAB PO ONE; -KETOROLAC 30 MG/ML 1 ML VIAL ONE; -LACTATED RINGERS 1,000 ML IV SCH; -LIDOCAINE 1% INJ 10MG/ML (20 ML MDV) ONE; -MIDAZOLAM 2 MG/2 ML VIAL ONE; -ONDANSETRON 4 MG/2 ML VIAL IVP ONE; -ONDANSETRON 4 MG/2 ML VIAL ONE; -PROPOFOL 10 MG/ML 20 ML VIAL IV ONE; -SUCCINYLCHOLINE CHLORIDE 100 MG/5 ML SYR IV ONE; -diphenhydrAMINE 50 MG/ML 1 ML VIAL IVP ONE; -fentaNYL (PF) 50 MCG/ML 2 ML AMP ONE
[2023-10-01 12:02] LABS: Glucose,Whole Blood 133 mg/dL (70-110)
[2023-10-01] MEDS: LACTATED RINGERS 1,000 ML IV SCH (12:02)
[2023-10-01] MEDS: DEXAMETHASONE SOD PHOSPHATE 4 MG/ML 1 ML VIAL IV ONE (12:09)
[2023-10-01] MEDS: ONDANSETRON 4 MG/2 ML VIAL IVP ONE (12:09)
[2023-10-01] MEDS ORDERED: MIDAZOLAM 2 MG/2 ML VIAL ONE (12:50)
[2023-10-01] MEDS ORDERED: SUCCINYLCHOLINE CHLORIDE 200 MG/10 ML VIAL IV ONE (12:50)
[2023-10-01] MEDS ORDERED: fentaNYL (PF) 50 MCG/ML 2 ML AMP ONE (12:50)
[2023-10-01] MEDS ORDERED: PROPOFOL 10 MG/ML 20 ML VIAL IV ONE (12:50)
[2023-10-01] MEDS ORDERED: KETOROLAC 15 MG/ML 1 ML VIAL ONE (12:50)
[2023-10-01] MEDS ORDERED: LIDOCAINE 1% INJ 10MG/ML (20 ML MDV) ONE (12:50)
[2023-10-01] MEDS: ceFAZolin 3 GM in SODIUM CHLORIDE 0.9% 100 ML IVPB PRN (12:55)
[2023-10-01] MEDS: BUPIVACAINE (PF) 0.25% 30 ML VIAL SQ ONE ×2 (13:17→13:40)
--- NOTE | 2023-10-01 13:59 | P.OP ---
Date of Procedure: 10/01/23 Preoperative Diagnosis: Internal derangement right knee Postoperative Diagnosis: 1. Tear medial and lateral meniscus right knee 2. Grade IV chondromalacia medial femoral condyle right knee 3. Reactive synovitis medial, lateral and suprapatellar compartments right knee Procedure(s) Performed: 1. Arthroscopic partial medial and lateral meniscectomy right knee 2. Arthroscopic microfracture medial femoral condyle right knee 3. Arthroscopic partial synovectomy medial, lateral and suprapatellar compartments right knee Anesthesia: ZAFARA, local Surgeon: Philip Gonzalez Estimated Blood Loss (ml): 7 Pathology: none sent Condition: stable Disposition: PACU Indications for Procedure: 53-year-old patient seen with progressive right knee pain. After having treatment options discussed, she elected to proceed with arthroscopy. Operative Findings: See description of procedure Description of Procedure: Patient was taken to the operative suite. Patient underwent a general anesthetic by the department of anesthesia. Patient was given preoperative antibiotics. The right lower extremity was placed in a well-padded arthroscopic leg flynn. The right leg was prepped and draped in the normal sterile orthopedic fashion. A lateral parapatellar and suprapatellar incision was made. Trochars were inserted. Arthroscopy was initiated. Suprapatellar pouch revealed diffuse thick reactive synovitis. The patellofemoral joint appeared to articulate congruently. There was grade II chondromalacia of the patella without significant osteochondral tears. The scope was guided into the medial gutter. No loose bodies or plica were identified the scope was then guided into the medial compartment. A medial parapatellar incision was made. Trocar inserted followed by probe. There was a complex tear involving the posterior horn of the medial meniscus. There were grade III/IV chondromalacia changes of the medial femoral condyle with osteochondral flap tears. There were grade III/IV chondromalacia changes on the posterior aspect of the tibial plateau as well. There was thick reactive synovitis anteriorly. I performed a partial medial meniscectomy getting down to stable meniscal tissue. I performed a chondroplasty of the medial femoral condyle getting down to stable osteochondral tissue. I performed a partial synovectomy decompressing the reactive synovitis. I did note an area of grade IV chondromalacia involving the medial femoral condyle weightbearing surface measuring just over 1 cm. I introduced a microfracture awl. I performed a microfracture to the area of exposed bone penetrating the bone with resultant bleeding at the microfracture site. The residual meniscus was stable. The residual osteochondral surface appeared stable. There was good decompression of the synovitis. Scope and probe were then guided into the intercondylar notch. Cruciates were identified, probed and found to be stable. The scope and probe were then guided into lateral compartment. There was a radial tear involving the posterior horn the lateral meniscus. There were grade I chondromalacia changes of the lateral compartment without tears. There was thick reactive synovitis anteriorly. I performed a partial lateral meniscectomy getting down to stable meniscal tissue. I performed a partial synovectomy decompressing the reactive synovitis. The residual meniscus was probed and was found to be stable. There was good decompression of the synovitis. The scope was in guided back into the suprapatellar compartment. I introduced a motorized shaver into the suprapatellar compartment. I debrided some piecemeal fragments of meniscus that I encountered. I performed a partial synovectomy. The shaver was removed. There was good decompression of the synovitis. I now took 1 more look around the entire knee, no residual debris. Instruments were now removed from the joint. The joint was infiltrated with .25% Marcaine. Steri-Strips were applied to the portal sites. Sterile dressings were applied. The patient was placed into a ROMAN hose. No tourniquet was utilized. The patient was awakened, transferred to a bed and taken to recovery stable satisfactory condition.
[2023-10-01] MEDS: HYDROmorphone 0.5 MG/0.5 ML SYRINGE IVP ONE (14:00)
[2023-10-01] MEDS: HYDROmorphone 0.5 MG/0.5 ML SYRINGE IVP PRN (14:09)
[2023-10-01] MEDS: LACTATED RINGERS 1,000 ML IV ONE (14:20)
[2023-10-01 14:22] VITALS: TEMP 97.8
[2023-10-01 15:42] VITALS: BP 147/74; RESP 16
[2023-10-01 15:43] VITALS: PULSE 74
== END 2023-10-01 15:53 | disposition home or self-care (01) ==
LOC: OR 10:53
PROVIDERS: ATTEND Orthopaedic Surgery
DX: S83.231A Complex tear of medial meniscus, current injury, right knee, initial encounter (principal); S83.281A Other tear of lateral meniscus, current injury, right knee, initial encounter; M94.261 Chondromalacia, right knee; M65.161 Other infective (teno)synovitis, right knee; E11.9 Type 2 diabetes mellitus without complications; M19.90 Unspecified osteoarthritis, unspecified site; K21.9 Gastro-esophageal reflux disease without esophagitis; F32.A Depression, unspecified; L40.0 Psoriasis vulgaris; E66.01 Morbid (severe) obesity due to excess calories; E78.00 Pure hypercholesterolemia, unspecified; F17.210 Nicotine dependence, cigarettes, uncomplicated; Z79.899 Other long term (current) drug therapy; Z79.84 Long term (current) use of oral hypoglycemic drugs; Z79.1 Long term (current) use of non-steroidal anti-inflammatories (NSAID); Z68.43 Body mass index [BMI] 50.0-59.9, adult; X58.XXXA Exposure to other specified factors, initial encounter
CPT/HCPCS: 29880; 29879; J2250; J0330; J1100; J0690; J2405; J2001; J3010; J1885; J2704; J1170; J0665

== ENCOUNTER 2023-11-02 11:51 | Day surgery (SDC) | payer BC ==
[~2023-11-02 11:51] MED LIST changes: +ALPRAZolam 0.25 MG TAB PO PRN; +ALPRAZolam 0.5 MG TAB PO PRN; +ASPIRIN 325 MG TAB PO STA; +HEPARIN SODIUM,PORCINE (1 ML) 2,500 UNIT in SODIUM CHLORIDE 0.9% 250 ML IRRIGATION PRN; +HEPARIN SODIUM,PORCINE 10,000 UNIT in SODIUM CHLORIDE 0.9% 1,000 ML IRRIGATION PRN; -LIDOCAINE 1% (10MG/ML) FOR IV START INTRADERMA PRN; -MIDAZOLAM 2 MG/2 ML VIAL IV PRN; +NITROGLYCERIN SL TABS 0.4 MG TAB SUBLINGUAL PRN
[2023-11-02] MEDS: SODIUM CHLORIDE 0.9% 1,000 ML in EMPTY BAG 1 BAG IV SCH (12:14)
[2023-11-02 12:19] LABS: Glucose,Whole Blood 130 mg/dL (70-110)
[2023-11-02 12:29] LABS: Basophils # (A) 0.1 k/uL (0-0.2); Basophils % (A) 1 %; Eosinophils # (A) 0.3 k/uL (0-0.7); Eosinophils % (A) 2 %; HCT 41.6 % (34.0-46.0); HGB 13.9 gm/dL (11.4-16.0); Lymphocytes # (A) 2.9 k/uL (1.0-4.8); Lymphocytes % (A) 22 %; MCH 29.2 pg (25.0-35.0); MCHC 33.4 g/dL (31.0-37.0); MCV 87.6 fL (80.0-100.0); Mean Platelet Volume 7.6; Monocytes # (A) 0.7 k/uL (0-1.0); Monocytes % (A) 5 %; Neutrophils # (A) 9.1 k/uL (1.3-7.7); Neutrophils % (A) 68 %; Platelet Count 338 k/uL (150-450); RBC 4.75 m/uL (3.80-5.40); RDW 13.8 % (11.5-15.5); WBC 13.5 k/uL (3.8-10.6)
[2023-11-02 12:34] LABS: African American GFR (CKD) >90 (>60 ml/min/1.73 sqM); Anion Gap 8 mmol/L; Blood Urea Nitrogen 16 mg/dL (7-17); Calcium 9.5 mg/dL (8.4-10.2); Carbon Dioxide 25 mmol/L (22-30); Chloride 105 mmol/L (98-107); Glucose 136 mg/dL (74-99); Non-African American GFR(CKD) >90 (>60 ml/min/1.73 sqM); Potassium 4.4 mmol/L (3.5-5.1); Sodium 138 mmol/L (137-145)
[2023-11-02] MEDS: METOPROLOL TARTRATE 12.5 MG TAB PO STA (12:47)
[2023-11-02 12:51] VITALS: RESP 18; TEMP 98.6
[2023-11-02] MEDS ORDERED: VERAPAMIL 2.5 MG/ML 2 ML AMP ONE ×2 (14:15→15:09)
[2023-11-02] MEDS ORDERED: LIDOCAINE 1% INJ 10MG/ML (20 ML MDV) ONE (14:15)
[2023-11-02] MEDS ORDERED: HEPARIN SODIUM 1,000 UN/ML (10ML VL) ONE (14:18)
[2023-11-02] MEDS ORDERED: fentaNYL (PF) 50 MCG/ML 2 ML AMP ONE ×2 (14:18→15:16)
[2023-11-02] MEDS: fentaNYL (PF) 50 MCG/ML 2 ML AMP IVP ONE ×2 (15:00→15:18)
[2023-11-02] MEDS: MIDAZOLAM 2 MG/2 ML VIAL IVP ONE ×2 (15:00→15:18)
[2023-11-02] MEDS: LIDOCAINE 1% INJ 10MG/ML (20 ML MDV) SQ ONE (15:03)
[2023-11-02] MEDS: VERAPAMIL SYRINGE (5 MG/10 ML) INTRAARTER ONE ×2 (15:04→15:10)
[2023-11-02] MEDS: HEPARIN SODIUM 1,000 UN/ML (10ML VL) IV ONE (15:24)
[2023-11-02] MEDS: IOPAMIDOL-370 100ML BTL INJ ONE (15:36)
[2023-11-02 18:12] VITALS: BP 147/70; PULSE 82
--- NOTE | 2023-11-02 22:45 | P.CARDCATH ---
Description of Procedure: PROCEDURES PERFORMED: Left heart catheterization, bilateral coronary angiography, ultrasound guided arterial access INDICATION: Abnormal stress test CONSENT:I have discussed the risks, benefits and alternative therapies for the above-mentioned procedure and for both sedation/analgesia as well as necessary blood product administration, if indicated, as they pertain to this patient. The patient has indicated understanding and acceptance of the risks and procedures discussed. PROCEDURE: After the risks, benefits and alternatives of the above mentioned procedure explained in detail with the patient, informed consent was obtained. Patient was taken to the catheterization lab and prepped and draped in usual fashion. Ultrasound guidance was used to assess for arterial access. 1% lidocaine was used to anesthetize the right radial artery. A 6-Czech sheath was placed in the right radial artery using modified Seldinger technique and ultrasound guidance. There was significant difficulty advancing past the forearm and therefore angiogram was performed which showed a radial loop as well as what appears an AV fistula. The loop was able to be traversed with a 0.014 BMW wire and the FR5 and FL 3.5 catheter were able to be advanced with some spasm of the right forearm. Left coronary angiography was performed with a 5-Czech JL 3.5 catheter and right coronary angiography was performed with a 5-Czech FR5 catheter in various views. A 5-Czech FR5 catheter was inserted into the left ventricle and pressure measurements were obtained. The right radial sheath was removed and a TR band was placed with hemostasis achieved. The patient tolerated the procedure well. Patient was transported back to the post catheterization holding area in stable condition. Conscious Sedation: Patient was monitored under the direct supervision of myself for conscious sedation using Versed and fentanyl for a total duration of 28 minutes HEMODYNAMICS: Ao: 158/87 LV: 155/10, LVEDP 23 SELECTIVE CORONARY ARTERIOGRAPHY: LEFT MAIN: The left main is a large caliber vessel which trifurcates into the LAD, ramus and circumflex. There is no significant stenosis. LEFT ANTERIOR DESCENDING CORONARY ARTERY: LAD is a large caliber vessel which wraps around to the apex. There is no significant stenosis. RAMUS INTERMEDIUS: The ramus is moderate caliber without significant stenosis LEFT CIRCUMFLEX CORONARY ARTERY: Left circumflex is a moderate caliber vessel without significant stenosis. RIGHT CORONARY ARTERY: The right coronary artery is a large caliber vessel which gives off a PDA and PLV branch and is the dominant vessel. There is no significant stenosis. FINAL IMPRESSION: 1. Normal coronary arteries as described above. 2. Elevated left sided filling pressures PLAN: 1. Aggressive risk factor modification per most recent ACC/AHA guidelines. 2. Follow-up in the office in 1-2 weeks.
== END 2023-11-02 18:06 | disposition home or self-care (01) ==
LOC: CATHCVL 11:51
PROVIDERS: ATTEND Internal Medicine
DX: R94.39 Abnormal result of other cardiovascular function study (principal); K21.9 Gastro-esophageal reflux disease without esophagitis; E78.5 Hyperlipidemia, unspecified; E11.9 Type 2 diabetes mellitus without complications; L40.50 Arthropathic psoriasis, unspecified; E66.9 Obesity, unspecified; Z68.42 Body mass index [BMI] 45.0-49.9, adult; Z82.49 Family history of ischemic heart disease and other diseases of the circulatory system; Z98.890 Other specified postprocedural states; Z79.899 Other long term (current) drug therapy; Z79.84 Long term (current) use of oral hypoglycemic drugs
CPT/HCPCS: 93458; 76937; 80048; 85025; J2250; J2001; J3010; J1644; Q9967